=== PATIENT | female | born 1955 | race Caucasian/White ===

== ENCOUNTER 2016-06-17 12:35 | Emergency (ER) | payer OTHER ==
[~2016-06-17] VITALS: Ht 154.9 cm; Wt 81.8 kg
[2016-06-17 13:51] LABS: BASOPHILS % (AUTO) 0.5 % (0.0-2.0); EOSINOPHILS % (AUTO) 1.9 % (1.0-6.0); HEMATOCRIT 46.3 % (36-46); HEMOGLOBIN 14.8 g/dL (12.0-16.0); LYMPHOCYTES # (AUTO) 2.1 K/uL (1.0-4.8); LYMPHOCYTES % (AUTO) 21.8 % (22.0-44.0); MEAN CORPUSCULAR HEMOGLOBIN 27.9 pg (26.0-34.0); MEAN CORPUSCULAR VOLUME 87 fL (80-100); MONOCYTES # (AUTO) 0.7 K/uL (0.1-1.0); MONOCYTES % (AUTO) 7.6 % (2.0-9.0); NEUTROPHILS # (AUTO) 6.6 K/uL (1.8-7.7); NEUTROPHILS % (AUTO) 68.2 % (40.0-70.0); PLATELET COUNT (AUTO) 277 K/uL (150-450); RED CELL DISTRIBUTION WIDTH 13.7 % (11.5-14.5); WHITE BLOOD COUNT (AUTO) 9.7 K/uL (4.5-11.0)
[2016-06-17 14:01] LABS: ANION GAP 10 mmol/L (8-16); CALCIUM, TOTAL 8.7 mg/dL (8.8-10.5); CARBON DIOXIDE 27 mmol/L (22-29); CHLORIDE 104 mmol/L (98-107); CREATININE 0.74 mg/dL (0.60-1.30); GLOMERULAR FILTR. RATE CALC > 60 mL/min (>60); POTASSIUM 3.9 mmol/L (3.5-5.1); SODIUM SERUM 141 mmol/L (136-145); UREA NITROGEN, BLOOD 9 mg/dL (7-18)
[2016-06-17 14:06] LABS: ALANINE AMINOTRANSFERASE 33 U/L (12-78); ALBUMIN 3.8 g/dL (3.4-5.0); ASPARTATE AMINOTRANSFERASE 19 U/L (15-37); BILIRUBIN,TOTAL 0.4 mg/dL (0.1-1.0); TOTAL PROTEIN, SERUM 7.7 g/dL (6.4-8.2)
[2016-06-17] MEDS ORDERED: LORazepam 2 MG TABLET PO ONE (18:00)
[2016-06-17 18:29] VITALS: BP 117/80
== END 2016-06-17 18:32 | disposition home or self-care (01) ==
LOC: EMS 12:37
DX: F20.9 Schizophrenia, unspecified (principal); R21 Rash and other nonspecific skin eruption
CPT/HCPCS: 36415; 80053; 80307; 85025; 99284; G0480

== ENCOUNTER 2018-10-10 14:11 | Inpatient (IN) | payer MEDICAID, OTHER ==
[~2018-10-10] VITALS: Ht 152.4 cm; Wt 76.2 kg
[2018-10-10 16:54] LABS: BASOPHILS % (AUTO) 0.6 % (0.0-2.0); EOSINOPHILS % (AUTO) 1.7 % (1.0-6.0); HEMATOCRIT 47.5 % (36-46); HEMOGLOBIN 15.4 g/dL (12.0-16.0); LYMPHOCYTES # (AUTO) 1.5 K/uL (1.0-4.8); MEAN CORPUSCULAR HEMOGLOBIN 29.1 pg (26.0-34.0); MEAN CORPUSCULAR HGB CONC 32.5 G/dL (31.0-37.0); MEAN CORPUSCULAR VOLUME 89 fL (80-100); MONOCYTES # (AUTO) 0.6 K/uL (0.1-1.0); MONOCYTES % (AUTO) 6.4 % (2.0-9.0); NEUTROPHILS # (AUTO) 6.6 K/uL (1.8-7.7); NEUTROPHILS % (AUTO) 74.3 % (40.0-70.0); PLATELET COUNT (AUTO) 259 K/uL (150-450); RED BLOOD CELL COUNT(AUTO) 5.31 MIL/uL (4.00-5.20); RED CELL DISTRIBUTION WIDTH 13.8 % (11.5-14.5)
[2018-10-10 17:08] LABS: ANION GAP 4 mmol/L (8-16); CALCIUM, TOTAL 8.9 mg/dL (8.8-10.5); CARBON DIOXIDE 26 mmol/L (22-29); CHLORIDE 107 mmol/L (98-107); CREATININE 0.65 mg/dL (0.60-1.30); GLOMERULAR FILTR. RATE CALC > 60 mL/min (>60); GLUCOSE,RANDOM 100 mg/dL (70-110); POTASSIUM 3.5 mmol/L (3.5-5.1); SODIUM SERUM 137 mmol/L (136-145); UREA NITROGEN, BLOOD 7 mg/dL (7-18)
[2018-10-10 17:14] LABS: ALANINE AMINOTRANSFERASE 29 U/L (12-78); ALBUMIN 3.9 g/dL (3.4-5.0); ALKALINE PHOSPHATASE 177 U/L (46-116); ASPARTATE AMINOTRANSFERASE 22 U/L (15-37); BILIRUBIN,TOTAL 0.4 mg/dL (0.1-1.0)
[2018-10-10 19:06] LABS: AMPHET/METH SCREEN,URINE NEGATIVE (NEGATIVE); BARBITURATE SCREEN, URINE NEGATIVE (NEGATIVE); BENZODIAZEPINES SCREEN,URINE NEGATIVE (NEGATIVE); CANNABINOID SCREEN,URINE NEGATIVE (NEGATIVE); COCAINE SCREEN,URINE NEGATIVE (NEGATIVE); METHADONE SCREEN, URINE NEGATIVE (NEGATIVE); OPIATE SCREEN,URINE NEGATIVE (NEGATIVE)
[2018-10-10 19:08] LABS: PHENCYCLIDINE SCREEN,URINE NEGATIVE (NEGATIVE)
[2018-10-10 19:33] LABS: APPEARANCE,URINE CLEAR (CLEAR); BILIRUBIN,URINE NEGATIVE (NEGATIVE); GLUCOSE, URINE (UA) NEGATIVE (NEGATIVE); KETONES,URINE NEGATIVE (NEGATIVE); LEUKOCYTE ESTERASE ,URINE NEGATIVE (NEGATIVE); NITRATE,URINE NEGATIVE (NEGATIVE); OCCULT BLOOD,URINE NEGATIVE (NEGATIVE); PROTEIN,URINE NEGATIVE (NEGATIVE); UROBILINOGEN,URINE 0.2 mg/dL (<=1.0)
[2018-10-10] MEDS ORDERED: QUEtiapine FUMARATE 100 MG TABLET PO ONE (20:45)
[2018-10-10] MEDS ORDERED: QUEtiapine FUMARATE 100 MG TABLET PO PRN (21:15)
[2018-10-10] MEDS ORDERED: LORazepam 2 MG TABLET PO PRN (21:15)
[2018-10-10] MEDS ORDERED: ZOLPIDEM TARTRATE 10 MG TABLET PO PRN (21:15)
[2018-10-11 00:38] VITALS: BP 135/73
[2018-10-11] MEDS ORDERED: PERMETHRIN 5% 60 GM CREAM TP ONE (07:30)
[2018-10-11 08:46] VITALS: BP 97/62
[2018-10-11 10:00] VITALS: BP 110/82
[2018-10-11] MEDS ORDERED: MAG HYDROX/AL HYDROX/SIMETH ES 30 ML SUSPENSION UDCUP PO PRN (12:00)
[2018-10-11] MEDS ORDERED: MAGNESIUM HYDROXIDE SUSPENSION 30 ML UDCUP PO PRN (12:00)
[2018-10-11] MEDS ORDERED: HydrOXYzine PAMOATE 50 MG CAPSULE PO PRN (12:00)
[2018-10-11] MEDS ORDERED: TUBERCULIN, PURIFIED PROTEIN DERIVATIVE 5 TU/0.1 ML SYRINGE ID ONE (12:00)
[2018-10-11] MEDS ORDERED: LOPERAMIDE HCL 2 MG CAPSULE PO PRN (12:00)
[2018-10-11] MEDS ORDERED: GuaiFENesin/D-METHORPHAN [SUGAR-FREE] 200-20MG/10 ML SYRUP UDCUP PO PRN (12:00)
[2018-10-11] MEDS ORDERED: PROMETHAZINE HCL 25 MG TABLET PO PRN (12:00)
[2018-10-11] MEDS ORDERED: ACETAMINOPHEN 325 MG TABLET PO PRN (12:00)
[2018-10-11 16:01] VITALS: BP 133/68
[2018-10-11] MEDS: THIAMINE HCL 100 MG TABLET PO SCH (16:07)
[2018-10-11] MEDS ORDERED: QUEtiapine FUMARATE 100 MG TABLET PO SCH (21:00)
[2018-10-12 05:42] VITALS: BP 128/69
[2018-10-12] MEDS: MULTIVITAMINS WITH MINERALS, THERAPEUTIC TABLET PO SCH (08:29)
[2018-10-12] MEDS: FOLIC ACID 1 MG TABLET PO SCH (08:29)
[2018-10-12] MEDS: THIAMINE HCL 100 MG TABLET PO SCH ×2 (08:30→16:27)
[2018-10-12 09:00] LABS: CHOL/HDL RATIO 2.7 (3.9-5.7); THYROID STIMULATING HORMONE 0.94 uIU/mL (0.36-3.74)
[2018-10-12 16:04] VITALS: BP 121/66
[2018-10-12] MEDS: QUEtiapine FUMARATE 200 MG TABLET PO SCH (20:29)
[2018-10-13 06:17] VITALS: BP 115/68
[2018-10-13 08:11] VITALS: BP 115/66
[2018-10-13] MEDS: MULTIVITAMINS WITH MINERALS, THERAPEUTIC TABLET PO SCH (08:37)
[2018-10-13] MEDS: FOLIC ACID 1 MG TABLET PO SCH (08:37)
[2018-10-13] MEDS: THIAMINE HCL 100 MG TABLET PO SCH ×2 (08:37→16:01)
[2018-10-13 16:05] VITALS: BP 136/87
[2018-10-13] MEDS: QUEtiapine FUMARATE 200 MG TABLET PO SCH (20:36)
[2018-10-14 04:55] VITALS: BP 112/74
[2018-10-14 08:02] VITALS: BP 114/59
[2018-10-14] MEDS: MULTIVITAMINS WITH MINERALS, THERAPEUTIC TABLET PO SCH (08:16)
[2018-10-14] MEDS: FOLIC ACID 1 MG TABLET PO SCH (08:16)
[2018-10-14] MEDS: THIAMINE HCL 100 MG TABLET PO SCH ×2 (08:16→16:23)
[2018-10-14 16:17] VITALS: BP 136/77
[2018-10-14] MEDS ORDERED: QUEtiapine FUMARATE 300 MG TABLET PO SCH (21:00)
[2018-10-15 08:05] VITALS: BP 117/72
[2018-10-15] MEDS: FOLIC ACID 1 MG TABLET PO SCH (08:50)
[2018-10-15] MEDS: MULTIVITAMINS WITH MINERALS, THERAPEUTIC TABLET PO SCH (08:50)
[2018-10-15] MEDS: THIAMINE HCL 100 MG TABLET PO SCH ×2 (08:50→16:22)
[2018-10-15] MEDS ORDERED: PALIPERIDONE 1.5 MG ER TABLET PO PRN (14:30)
[2018-10-15] MEDS ORDERED: PALIPERIDONE PALMITATE 234 MG/1.5 ML SYRINGE IM ONE (14:30)
[2018-10-15 16:02] VITALS: BP 110/74
[2018-10-15] MEDS: PALIPERIDONE 3 MG ER TABLET PO SCH (19:24)
[2018-10-16 07:18] VITALS: BP 104/62
[2018-10-16 08:09] VITALS: BP 100/65
[2018-10-16] MEDS: FOLIC ACID 1 MG TABLET PO SCH (08:28)
[2018-10-16] MEDS: THIAMINE HCL 100 MG TABLET PO SCH ×2 (08:28→16:12)
[2018-10-16] MEDS: MULTIVITAMINS WITH MINERALS, THERAPEUTIC TABLET PO SCH (08:28)
[2018-10-16 16:01] VITALS: BP 106/69
[2018-10-16] MEDS: PALIPERIDONE 3 MG ER TABLET PO SCH (20:15)
[2018-10-17 06:36] VITALS: BP 101/61
[2018-10-17 08:02] VITALS: BP 95/65
[2018-10-17] MEDS: THIAMINE HCL 100 MG TABLET PO SCH ×2 (08:37→16:16)
[2018-10-17] MEDS: FOLIC ACID 1 MG TABLET PO SCH (08:38)
[2018-10-17] MEDS: MULTIVITAMINS WITH MINERALS, THERAPEUTIC TABLET PO SCH (08:38)
[2018-10-17 16:03] VITALS: BP 125/69
[2018-10-17] MEDS: PALIPERIDONE 3 MG ER TABLET PO SCH (20:15)
[2018-10-18 03:52] VITALS: BP 106/70
[2018-10-18] MEDS: FOLIC ACID 1 MG TABLET PO SCH (08:17)
[2018-10-18] MEDS: THIAMINE HCL 100 MG TABLET PO SCH ×2 (08:17→16:06)
[2018-10-18] MEDS: MULTIVITAMINS WITH MINERALS, THERAPEUTIC TABLET PO SCH (08:17)
[2018-10-18 08:28] VITALS: BP 126/87
[2018-10-18] MEDS ORDERED: PALIPERIDONE PALMITATE 156 MG/ML SYRINGE IM ONE (11:00)
[2018-10-18] MEDS ORDERED: PALI117D IM (11:58)
[2018-10-18 16:11] VITALS: BP 120/65
[2018-10-19] MEDS ORDERED: PALIPERIDONE PALMITATE 156 MG/ML SYRINGE IM ONE (09:00)
== END 2018-10-18 20:16 | disposition home or self-care (01) | DRG 750 ==
LOC: EMS 14:11 → B3A 22:00 → EMS 23:05 → B3A 10-11 00:26
PROVIDERS: ADMIT Psychiatry & Neurology Psychiatry; ATTEND Psychiatry & Neurology Psychiatry
DX: F20.0 Paranoid schizophrenia (principal); Z91.19 Patient's noncompliance with other medical treatment and regimen; R41.843 Psychomotor deficit; Z60.2 Problems related to living alone
CPT/HCPCS: 84439; 84443; 86592; G0480